=== PATIENT | female | born 1990 | race American Indian/Alaskan Native ===

== ENCOUNTER 2018-06-17 19:16 | Emergency (ER) | payer SELFPAY ==
[2018-06-17 20:40] LABS: Basophils # (Auto) 0.1 K/mm3 (0.0-0.1); Basophils % (Auto) 0.8 % (0.0-1.8); Eosinophils # (Auto) 0.1 K/mm3 (0.0-0.4); Eosinophils % (Auto) 1.2 % (0.0-4.3); Hematocrit 32.4 % (30.3-42.9); Hemoglobin 10.8 gm/dl (10.1-14.3); Lymphocytes % (Auto) 24.7 % (13.4-35.0); Mean Corpuscular HGB Conc 33 % (30-34); Mean Corpuscular Volume 72 fl (79-97); Monocytes # (Auto) 0.6 K/mm3 (0.0-0.8); Monocytes % (Auto) 7.5 % (0.0-7.3); Platelet Count 268 K/mm3 (140-440); Red Blood Count 4.51 M/mm3 (3.65-5.03); Red Cell Distribution Width 16.7 % (13.2-15.2)
[2018-06-17 20:51] LABS: Alanine Aminotransferase 8 units/L (7-56); BUN/Creatinine Ratio 13; Blood Urea Nitrogen 10 mg/dL (7-17); Calcium 9.1 mg/dL (8.4-10.2); Hemolysis Index 1
[2018-06-17 21:11] LABS: Mean Corpuscular Hemoglobin 24 pg (28-32)
[2018-06-17 21:21] LABS: Bacteria,Urine 1+ /HPF (Negative); Bilirubin,Urine NEG (Negative); Blood,Urine NEG (Negative); Color,Urine Yellow (Yellow); Mucus,Urine FEW /HPF; Protein,Urine <15 mg/dL mg/dL (Negative); Urobilinogen,Urine < 2.0 mg/dL (<2.0)
[2018-06-17] MEDS ORDERED: NACL 0.9% 1000 ML 1,000 ML IV ONE (22:11)
[2018-06-17] MEDS ORDERED: ZOFRAN IV ONE (22:11)
--- NOTE | 2018-06-17 22:59 | Ultrasound Report ---
FINAL REPORT PROCEDURE: Transabdominal obstetrical ultrasound. TECHNIQUE: Real-time transabdominal sonography of the uterus, placenta, amniotic fluid, adnexa, and fetus was performed with image documentation. Measurements were obtained to determine age/size. M-mode Doppler was used to document heartbeat. CPT 79232 HISTORY: +hcg, dizzy, no care COMPARISON: No prior studies are available for comparison. FINDINGS: The uterus measures 10.9 centimeters x 6.2 centimeters x 7.1 centimeters. The myometrium appears normal. There is an intrauterine gestational sac. The contents should be better visualized by transvaginal scanning. There are 2 cystic masses in the right ovary. The largest measures 5.9 centimeters. The smaller measures 3.1 centimeters. The left ovary is not visualized. There is no fluid in the cul-de-sac. IMPRESSION: Intrauterine gestational sac. Two right ovarian cysts.
--- NOTE | 2018-06-17 23:03 | Ultrasound Report ---
FINAL REPORT PROCEDURE: Transvaginal obstetrical ultrasound. TECHNIQUE: Real-time transvaginal sonography of the uterus, placenta, amniotic fluid, adnexa, and fetus was performed with image documentation. Measurements were obtained to determine age/size. M-mode Doppler was used to document heartbeat. CPT 61063 HISTORY: +hcg, dizzy, no care COMPARISON: No prior studies are available for comparison. FINDINGS: The myometrium appears normal. There is an intrauterine gestational sac. A yolk sac and pole are visible. The crown-rump length measurement is 11.9 millimeters. This indicates a menstrual age of 7 weeks 3 days. The estimated date of confinement is 01/31/2019. Cardiac activity is documented at 138 beats per minute. There are 2 cysts in the right ovary. The largest cyst has a septation and measures 5.9 centimeters. The smaller cyst measures 3.1 centimeters. The left ovary appears normal and contains small follicles. There is a small amount of free fluid in the pelvis. IMPRESSION: Viable intrauterine with a menstrual age of 7 weeks 3 days. Two right ovarian cysts.
[2018-06-17] MEDS ORDERED: ZOFRAN ODT PO ONE (23:05)
--- NOTE | 2018-06-17 23:10 | Emergency Department Report ---
ED Dizziness HPI - General Chief Complaint: Dizziness Stated Complaint: DIZZY BLURRED VISION 8 WKS Time Seen by Provider: 06/17/18 21:45 Source: patient Mode of arrival: Ambulatory Limitations: No Limitations - History of Present Illness Initial Comments: 27 year old female with a past medical history of asthma, anemia, and IBS presents to the hospital approximately 8 weeks complaining of feeling lightheaded with standing, nausea, vomiting, and generalized fatigue. Patient had a positive home test but has not yet initiated care. She has had poor by mouth intake due to continue nausea and intermittent vomiting with by mouth intake. She has mild suprapubic cramping pain but denies vaginal bleeding, dysuria, diarrhea, fever, headache, chest pain, or shortness of breath. Her WELLNESS EDUCATOR doctor is Dr. Fournier associated with [facility] WELLNESS EDUCATOR and patient has scheduled her for appointment - Related Data Previous Rx's Medication Instructions Recorded Last Taken Type Ondansetron [Zofran Odt] 4 mg PO Q8HR PRN #20 tab.rapdis 06/17/18 Unknown Rx Allergies Allergy/AdvReac Type Severity Reaction Status Date / Time amoxicillin Allergy Hives Verified 06/17/18 20:12 Penicillins Allergy Hives Verified 06/17/18 20:12 prednisone Allergy Headache Verified 06/17/18 20:12 ED Review of Systems ROS: Stated complaint: DIZZY BLURRED VISION 8 WKS Other details as noted in HPI Comment: All other systems reviewed and negative ED Past Medical Hx - Past Medical History Previous Medical History?: Yes Hx Asthma: Yes Additional medical history: anemic, IBS - Surgical History Past Surgical History?: Yes Additional Surgical History: c sec X2 - Social History Smoking Status: Never Smoker Substance Use Type: None - Medications Home Medications: Home Medications Medication Instructions Recorded Confirmed Last Taken Type Ondansetron [Zofran Odt] 4 mg PO Q8HR PRN #20 tab.rapdis 06/17/18 Unknown Rx ED Physical Exam - General Limitations: No Limitations - Other Other exam information: General: No limitations, patient is alert in no acute distress Head exam: Atraumatic, normocephalic Eyes exam: Normal appearance ENT: Dry mucous membranes Neck exam: Normal inspection, full range of motion, no meningismus nontender Respiratory exam: Clear to auscultation bilateral, no wheezes, rales, crackles Cardiovascular: Normal rate and rhythm, normal heart sounds Abdomen: Soft, nondistended, minimal suprapubic discomfort, with normal bowel sounds, no rebound, or guarding Extremity: Full range of motion normal inspection no deformity Back: Normal Inspection, full range of motion, no tenderness Neurologic: Alert, oriented x3, cranial nerves intact, no motor or sensory deficit Psychiatric: normal affect, normal mood Skin: Warm, dry, intact ED Course Vital Signs 06/17/18 19:45 Temperature 99.2 F Pulse Rate 72 Respiratory 18 Rate Blood Pressure 122/75 O2 Sat by Pulse 99 Oximetry ED Medical Decision Making - Lab Data Result diagrams: 06/17/18 20:22 06/17/18 20:22 Lab Results 06/17/18 06/17/18 06/17/18 Range/Units 20:22 20:22 20:22 WBC 8.0 (4.5-11.0) K/mm3 RBC 4.51 (3.65-5.03) M/mm3 Hgb 10.8 (10.1-14.3) gm/dl Hct 32.4 (30.3-42.9) % MCV 72 L (79-97) fl MCH 24 L (28-32) pg MCHC 33 (30-34) % RDW 16.7 H (13.2-15.2) % Plt Count 268 (140-440) K/mm3 Lymph % (Auto) 24.7 (13.4-35.0) % [place] % (Auto) 7.5 H (0.0-7.3) % Eos % (Auto) 1.2 (0.0-4.3) % Baso % (Auto) 0.8 (0.0-1.8) % Lymph # 2.0 (1.2-5.4) K/mm3 [place] # 0.6 (0.0-0.8) K/mm3 Eos # 0.1 (0.0-0.4) K/mm3 Baso # 0.1 (0.0-0.1) K/mm3 Seg Neutrophils % 65.8 (40.0-70.0) % Seg Neutrophils # 5.2 (1.8-7.7) K/mm3 Sodium 137 (137-145) mmol/L Potassium 3.6 (3.6-5.0) mmol/L Chloride 100.2 (98-107) mmol/L Carbon Dioxide 24 (22-30) mmol/L Anion Gap 16 mmol/L BUN 10 (7-17) mg/dL Creatinine 0.8 (0.7-1.2) mg/dL Estimated GFR > 60 ml/min BUN/Creatinine Ratio 13 % Glucose 95 (65-100) mg/dL Calcium 9.1 (8.4-10.2) mg/dL Total Bilirubin 0.20 (0.1-1.2) mg/dL AST 12 (5-40) units/L ALT 8 (7-56) units/L Alkaline Phosphatase 41 (35-129) units/L Total Protein 7.0 (6.3-8.2) g/dL Albumin 4.0 (3.9-5) g/dL Albumin/Globulin Ratio 1.3 % HCG, Quant 05697 H (0-4) mIU/mL Urine Color (Yellow) Urine Turbidity (Clear) Urine pH (5.0-7.0) Ur Specific [place] (1.003-1.030) Urine Protein (Negative) mg/dL Urine Glucose (UA) (Negative) mg/dL Urine Ketones (Negative) mg/dL Urine Blood (Negative) Urine Nitrite (Negative) Urine Bilirubin (Negative) Urine Urobilinogen (<2.0) mg/dL Ur Leukocyte Esterase (Negative) Urine WBC (Auto) (0.0-6.0) /HPF Urine RBC (Auto) (0.0-6.0) /HPF U Epithel Cells (Auto) (0-13.0) /HPF Urine Bacteria (Auto) (Negative) /HPF Urine Mucus /HPF 06/17/18 Range/Units 20:56 WBC (4.5-11.0) K/mm3 RBC (3.65-5.03) M/mm3 Hgb (10.1-14.3) gm/dl Hct (30.3-42.9) % MCV (79-97) fl MCH (28-32) pg MCHC (30-34) % RDW (13.2-15.2) % Plt Count (140-440) K/mm3 Lymph % (Auto) (13.4-35.0) % [place] % (Auto) (0.0-7.3) % Eos % (Auto) (0.0-4.3) % Baso % (Auto) (0.0-1.8) % Lymph # (1.2-5.4) K/mm3 [place] # (0.0-0.8) K/mm3 Eos # (0.0-0.4) K/mm3 Baso # (0.0-0.1) K/mm3 Seg Neutrophils % (40.0-70.0) % Seg Neutrophils # (1.8-7.7) K/mm3 Sodium (137-145) mmol/L Potassium (3.6-5.0) mmol/L Chloride (98-107) mmol/L Carbon Dioxide (22-30) mmol/L Anion Gap mmol/L BUN (7-17) mg/dL Creatinine (0.7-1.2) mg/dL Estimated GFR ml/min BUN/Creatinine Ratio % Glucose (65-100) mg/dL Calcium (8.4-10.2) mg/dL Total Bilirubin (0.1-1.2) mg/dL AST (5-40) units/L ALT (7-56) units/L Alkaline Phosphatase (35-129) units/L Total Protein (6.3-8.2) g/dL Albumin (3.9-5) g/dL Albumin/Globulin Ratio % HCG, Quant (0-4) mIU/mL Urine Color Yellow (Yellow) Urine Turbidity Clear (Clear) Urine pH 6.0 (5.0-7.0) Ur Specific [place] 1.026 (1.003-1.030) Urine Protein <15 mg/dl (Negative) mg/dL Urine Glucose (UA) Neg (Negative) mg/dL Urine Ketones Tr (Negative) mg/dL Urine Blood Neg (Negative) Urine Nitrite Neg (Negative) Urine Bilirubin Neg (Negative) Urine Urobilinogen < 2.0 (<2.0) mg/dL Ur Leukocyte Esterase Neg (Negative) Urine WBC (Auto) 3.0 (0.0-6.0) /HPF Urine RBC (Auto) 3.0 (0.0-6.0) /HPF U Epithel Cells (Auto) 4.0 (0-13.0) /HPF Urine Bacteria (Auto) 1+ (Negative) /HPF Urine Mucus Few /HPF - Radiology Data Radiology results: report reviewed FINAL REPORT PROCEDURE: Transvaginal obstetrical ultrasound. TECHNIQUE: Real-time transvaginal sonography of the uterus, placenta, amniotic fluid, adnexa, and fetus was performed with image documentation. Measurements were obtained to determine age/size. M-mode Doppler was used to document heartbeat. CPT 90653 HISTORY: +hcg, dizzy, no care COMPARISON: No prior studies are available for comparison. FINDINGS: The myometrium appears normal. There is an intrauterine gestational sac. A yolk sac and pole are visible. The crown-rump length measurement is 11.9 millimeters. This indicates a menstrual age of 7 weeks 3 days. The estimated date of confinement is 01/31/2019. Cardiac activity is documented at 138 beats per minute. There are 2 cysts in the right ovary. The largest cyst has a septation and measures 5.9 centimeters. The smaller cyst measures 3.1 centimeters. The left ovary appears normal and contains small follicles. There is a small amount of free fluid in the pelvis. IMPRESSION: Viable intrauterine with a menstrual age of 7 weeks 3 days. Two right ovarian cysts. FINAL REPORT PROCEDURE: Transabdominal obstetrical ultrasound. TECHNIQUE: Real-time transabdominal sonography of the uterus, placenta, amniotic fluid, adnexa, and fetus was performed with image documentation. Measurements were obtained to determine age/size. M-mode Doppler was used to document heartbeat. CPT 53552 HISTORY: +hcg, dizzy, no care COMPARISON: No prior studies are available for comparison. FINDINGS: The uterus measures 10.9 centimeters x 6.2 centimeters x 7.1 centimeters. The myometrium appears normal. There is an intrauterine gestational sac. The contents should be better visualized by transvaginal scanning. There are 2 cystic masses in the right ovary. The largest measures 5.9 centimeters. The smaller measures 3.1 centimeters. The left ovary is not visualized. There is no fluid in the cul-de-sac. IMPRESSION: Intrauterine gestational sac. Two right ovarian cysts. - Medical Decision Making I suspect symptoms are secondary to dehydration and poor by mouth intake due to continued nausea and vomiting associated with Ultrasound confirms IUP Patient initially agreeable to IV fluids and Zofran. Patient declines treatment because she needs to go home with her children. Instead she was provided by mouth Zofran and instructed to orally hydrate at home. - Differential Diagnosis anemia, dehydration, ectopic , infection Critical Care Time: No Critical care attestation.: If time is entered above; I have spent that time in minutes in the direct care of this critically ill patient, excluding procedure time. ED Disposition Clinical Impression: 7 weeks gestation of , Lightheadedness, Dehydration, Nausea and vomiting in Disposition: TO HOME OR SELFCARE Is pt being admited?: No Does the pt Need Aspirin: No Condition: Stable Instructions: (ED), Morning Sickness (ED), Dehydration (ED) Additional Instructions: You have declined offer for IV nausea medication and IV fluids in the ER. Your provided Zofran to help control your nausea symptoms. Please continue to drink plenty of fluids at home and follow-up with the WELLNESS EDUCATOR doctor. You were provided a copy of the ultrasound report to take to see your WELLNESS EDUCATOR doctor for follow-up. Prescriptions: Ondansetron [Zofran Odt] 4 mg PO Q8HR PRN #20 tab.rapdis PRN Reason: Nausea And Vomiting Referrals: your, atmospheric drier tender MD [Other] - 2-3 Days Time of Disposition: 23:12
[2018-06-17] MEDS ORDERED: NACL 0.9% 1000 ML 1,000 ML ONE (23:13)
[2018-06-18 00:09] VITALS: BP 115/62
== END 2018-06-18 00:09 | disposition home or self-care (01) ==
LOC: ED 19:16
DX: O26.891 Other specified pregnancy related conditions, first trimester (principal); E86.0 Dehydration; R42 Dizziness and giddiness; Z3A.01 Less than 8 weeks gestation of pregnancy; J45.909 Unspecified asthma, uncomplicated; K52.3 Indeterminate colitis; Z86.2 Personal history of diseases of the blood and blood-forming organs and certain disorders involving the immune mechanism; Z88.0 Allergy status to penicillin; Z88.1 Allergy status to other antibiotic agents; Z88.6 Allergy status to analgesic agent
CPT/HCPCS: 36415; 76801; 76817; 80053; 81001; 84702; 85025; 93005; 93010; 99284; J7030; Q0162

== ENCOUNTER 2018-07-15 11:19 | Emergency (ER) | payer BC, OTHER ==
[2018-07-15 11:27] VITALS: BP 135/63
--- NOTE | 2018-07-15 13:22 | Emergency Department Report ---
ED Rash HPI - HPI Chief Complaint: Skin/Abscess/Foreign Body Stated Complaint: INSECT BITE/ARM PAIN/ Time Seen by Provider: 07/15/18 12:20 Duration: 4 Days Location: Upper Extremities (right forearm) Suspected Cause: Insect Rash Symptoms: Yes Itching, No Facial Swelling, No Tongue/Oral Swelling, No Breathing Difficulties, No Choking Sensation, No Wheezing/Dyspnea, No Peeling, No Blistering, No Fever, No Lightheaded, No Malaise, No Myalgias Other History: This is a 27-year-old female who presents with rash to right forearm for 4 days. Patient states she is 11 weeks gestation and concern of possible infection. Patient states rash started out as small round bump to right lower forearm and has increased in size over the past 3 days. There is some warmth and itching to the area. She states there is some tenderness times but currently no pain. She thought initially it was from a mosquito bite but admits redness increases she felt it could be infected. Patient denies numbness or tingling, nausea or vomiting, myalgia, swelling, chest pain. ED Review of Systems ROS: Stated complaint: INSECT BITE/ARM PAIN/ Other details as noted in HPI Constitutional: denies: chills, fever Respiratory: denies: cough, shortness of breath, wheezing Cardiovascular: denies: chest pain, palpitations Gastrointestinal: denies: abdominal pain, nausea, diarrhea Musculoskeletal: denies: back pain, joint swelling, arthralgia Skin: rash (right forearm). denies: lesions Neurological: denies: headache, weakness, paresthesias Psychiatric: denies: anxiety, depression ED Past Medical Hx - Past Medical History Hx Asthma: Yes Additional medical history: anemic, IBS - Surgical History Additional Surgical History: c sec X2 - Social History Smoking Status: Never Smoker Substance Use Type: None - Medications Home Medications: Home Medications Medication Instructions Recorded Confirmed Last Taken Type Ondansetron [Zofran Odt] 4 mg PO Q8HR PRN #20 tab.rapdis 06/17/18 Unknown Rx Neomycin/Bacitracin/Polymyxinb 14.2 gm TP BID #1 oint...g. 07/15/18 Unknown Rx [Triple Antibiotic Ointment] Rash Exam - Exam General: Vital signs noted. No distress. Alert and acting appropriately. HEENT: No Periorbital Edema, No Conjuctival Injection, No Chemosis, No Perioral Edema, No Tongue Edema, No Uvular Edema, No Compromised Airway, No Drooling Lungs: Yes Good Air Exchange (Normal Breath Sounds), No Wheezes, No Ronchi, No Stridor, No Cough, No Labored Respirations, No Retractions, No Use of Accessory Muscles, No Other Abnormal Lung Sounds Heart: Yes Regular, No Murmur Skin: Yes Maculopapular Rash (1 cm erythematous round maculopapular rash to right lateral distal forearm, blanchable), Yes Erythema, No Urticarial Rash, No Morbilliform rash, No Bulla(e), No Excoriations, No Weeping, No Tenderness, No Edema, No Encrustations ED Course Vital Signs 07/15/18 11:23 Temperature 98.4 F Pulse Rate 83 Respiratory 18 Rate Blood Pressure 135/63 O2 Sat by Pulse 99 Oximetry ED Medical Decision Making - Medical Decision Making Patient was examined by myself in fast track. Vitals are normal and patient is in no acute distress. Physical findings assessment allergic dermatitis. Start triple antibiotic ointment bid x 7-10 days. Patient discharged home in stable condition. Follow up with PCP in 2-3 days. Critical care attestation.: If time is entered above; I have spent that time in minutes in the direct care of this critically ill patient, excluding procedure time. ED Disposition Clinical Impression: Allergic dermatitis Insect bite Qualifiers: Encounter type: initial encounter Qualified Code(s): W57.XXXA - Bitten or stung by nonvenomous insect and other nonvenomous arthropods, initial encounter Disposition: TO HOME OR SELFCARE Is pt being admited?: No Does the pt Need Aspirin: No Condition: Stable Instructions: Contact Dermatitis (ED) Additional Instructions: Apply a thin layer of triamcinolone cream twice a day for 5-10 days. Wash area prior to applying cream. Follow up with primary care provider in 24-72 hours. Prescriptions: Neomycin/Bacitracin/Polymyxinb [Triple Antibiotic Ointment] 14.2 gm TP BID #1 oint...g. Referrals: [facility] [Provider Group] - 3-5 Days [facility] [Provider Group] - 3-5 Days Time of Disposition: 13:30 Print Language: MALIAN
== END 2018-07-15 13:48 | disposition home or self-care (01) ==
LOC: ED 11:19
DX: O9A.211 Injury, poisoning and certain other consequences of external causes complicating pregnancy, first trimester (principal); S50.861A Insect bite (nonvenomous) of right forearm, initial encounter; W57.XXXA Bitten or stung by nonvenomous insect and other nonvenomous arthropods, initial encounter; J45.909 Unspecified asthma, uncomplicated; Z86.2 Personal history of diseases of the blood and blood-forming organs and certain disorders involving the immune mechanism; Z3A.11 11 weeks gestation of pregnancy; Y93.89 Activity, other specified; Y92.89 Other specified places as the place of occurrence of the external cause; Y99.8 Other external cause status
CPT/HCPCS: 99282

== ENCOUNTER 2018-07-27 23:28 | Emergency (ER) | payer BC ==
[2018-07-28] MEDS ORDERED: ZOFRAN ODT PO ONE (00:40)
[2018-07-28] MEDS ORDERED: ZOFRAN ODT ONE (00:42)
[2018-07-28 01:11] LABS: Hematocrit 34.6 % (30.3-42.9); Hemoglobin 11.2 gm/dl (10.1-14.3); Mean Corpuscular HGB Conc 32 % (30-34); Mean Corpuscular Volume 75 fl (79-97); Platelet Count 270 K/mm3 (140-440); Red Blood Count 4.65 M/mm3 (3.65-5.03); Red Cell Distribution Width 17.4 % (13.2-15.2)
[2018-07-28 01:16] LABS: Mean Corpuscular Hemoglobin 24 pg (28-32)
[2018-07-28 01:17] LABS: BUN/Creatinine Ratio 10; Blood Urea Nitrogen 8 mg/dL (7-17); Hemolysis Index 1
[2018-07-28] MEDS ORDERED: ZOFRAN IV ONE (04:12)
[2018-07-28] MEDS ORDERED: NACL 0.9% 1000 ML 2,000 ML IV ONE (04:12)
[2018-07-28] MEDS ORDERED: NACL 0.9% 1000 ML 1,000 ML ONE (04:16)
[2018-07-28] MEDS ORDERED: ZOFRAN ONE (04:16)
--- NOTE | 2018-07-28 04:19 | Emergency Department Report ---
Vomiting/Diarrhea - HPI Chief Complaint: Nausea/Vomiting/Diarrhea Stated Complaint: VOMITING Time Seen by Provider: 07/28/18 04:03 Duration: 1 Day Nausea/Vomiting Severity: Moderate Diarrhea Severity: None Symptoms: No Able to Tolerate Fluids, No Recent Unusual Foods, No Recent Untreated Water, No Recent use of Antibiotics, No Family w/ Similar Symptoms, No Contacts w/ Similar Symptoms, No Rash, No Hematuria, No Recent URI Symptoms Other History: 27-year-old -[place] female that is 13 weeks comes in with vomiting for 24 hours. Patient reports dizziness as well. Patient had not make contact with her BEREAVEMENT COUNSELOR she had made a call and name did not call her back. Patient is currently taking vitamins. Patient is 4 para 2. Patient denies any urinary symptoms. ED Review of Systems ROS: Stated complaint: VOMITING Other details as noted in HPI Comment: All other systems reviewed and negative Constitutional: denies: chills, fever Gastrointestinal: nausea, vomiting. denies: abdominal pain ED Past Medical Hx - Past Medical History Previous Medical History?: Yes Hx Asthma: Yes Additional medical history: anemic, IBS - Surgical History Past Surgical History?: Yes Additional Surgical History: c sec X2 - Social History Smoking Status: Never Smoker Substance Use Type: None - Medications Home Medications: Home Medications Medication Instructions Recorded Confirmed Last Taken Type Ondansetron [Zofran Odt] 4 mg PO Q8HR PRN #20 tab.rapdis 06/17/18 Unknown Rx Neomycin/Bacitracin/Polymyxinb 14.2 gm TP BID #1 oint...g. 07/15/18 Unknown Rx [Triple Antibiotic Ointment] Doxylamine Succinate/Vit B6 2 each PO QHS #60 tablet.dr 07/28/18 Unknown Rx [Diclegis Dr 10-10 mg Tablet] Ina Root [Ina] 250 mg PO QID #120 capsule 07/28/18 Unknown Rx Vomiting Diarrhea Exam - Exam General: Vital signs noted. No distress. Alert and acting appropriately. HEENT: No Pharyngeal Erythema, No Pharyngeal Exudates, No Moist Mucous Membranes , No Rhinorrhea, No Conjuctival Injection, No Frontal Tenderness, No Maxillary Tenderness Neck: No Adenopathy, No Rigidity Lungs: Yes Clear Lung Sounds, Yes Good Air Exchange, No Wheezes, No Stridor, No Cough, No Nasal Flaring, No Retractions, No Use of Accessory Muscles Heart exam: Regular: Yes, Murmur: No, Tachycardia: No Abdomen: Tenderness: No, Peritoneal Signs: No, Distention: No, Hyperactive Bowel sounds: No Skin exam: Rash: No, Edema: No, Normal turgor: Yes Neurologic: Alert and oriented, no deficits. Musculoskeletal: Unremarkable. ED Course Vital Signs 07/28/18 00:30 Temperature 99.7 F H Pulse Rate 81 Respiratory 18 Rate Blood Pressure 116/64 O2 Sat by Pulse 99 Oximetry - Reevaluation(s) Reevaluation #1: 07/28/18 06:01 Patient reports she feels much better after having fluids. ED Medical Decision Making - Lab Data Result diagrams: 07/28/18 00:55 07/28/18 00:55 - Medical Decision Making Patient has been evaluated by this provider fast track. Urinalysis, CBC, CMP and ordered. IV insertion, normal saline 2 L, Zofran 4 mg IV. Discussed patient I will discharge her on ina root 250 mg every 6-8 hours as needed as well as diclegis. Patient is requesting referral to a new BEREAVEMENT COUNSELOR providers. Critical care attestation.: If time is entered above; I have spent that time in minutes in the direct care of this critically ill patient, excluding procedure time. ED Disposition Clinical Impression: Hyperemesis gravidarum Disposition: DC-01 TO HOME OR SELFCARE Is pt being admited?: No Does the pt Need Aspirin: No Condition: Stable Instructions: Acute Nausea and Vomiting (ED) Additional Instructions: Please take antinausea medication. I also recommend doing ina chews, fresh ina cut up in boil with a Tea bag, small meals. Follow-up with [facility] FURNACE KEEPER HELPER. Prescriptions: Doxylamine Succinate/Vit B6 [Mansi Camarena 10-10 mg Tablet] 2 each PO QHS #60 tablet. Ina Root [Ina] 250 mg PO QID #120 capsule Referrals: [facility] [Provider Group] - 3-5 Days [facility] [Provider Group] - 3-5 Days [facility] [Provider Group] - 3-5 Days [facility] [Provider Group] - 3-5 Days
[2018-07-28 05:12] LABS: Bilirubin,Urine NEG (Negative); Color,Urine Amber (Yellow)
[2018-07-28 05:13] LABS: Bacteria,Urine 2+ /HPF (Negative); Blood,Urine NEG (Negative); Hyaline Casts,Urine 2 /LPF; Mucus,Urine 3+ /HPF; Urobilinogen,Urine < 2.0 mg/dL (<2.0)
[2018-07-28 06:09] VITALS: BP 126/60
== END 2018-07-28 06:07 | disposition home or self-care (01) ==
LOC: ED 23:28
DX: O21.0 Mild hyperemesis gravidarum (principal); Z3A.13 13 weeks gestation of pregnancy; J45.909 Unspecified asthma, uncomplicated
CPT/HCPCS: 36415; 80048; 81001; 83735; 84702; 85027; 96361; 96374; 99283; J2405; J7030; Q0162